=== PATIENT | male | born 1955 | race Caucasian/White ===

== ENCOUNTER 2017-07-10 00:31 | Observation (INO) | payer MEDICARE, MEDICAID ==
[~2017-07-10] VITALS: Ht 182.9 cm; Wt 110.0 kg
[2017-07-10] VITALS (9 sets, daily range): BP systolic 108–159; BP diastolic 52–88; PULSE 82–109; RESP 19–28; TEMP 97.3–98.6; O2SAT 93–98
[~2017-07-10 00:31] MED LIST: ALBU0.086 INH; ALBU17I INH; AZIT250T43 PO; CYMB60CA PO; FURO20TA PO; IPRA0.02 INH; LISI-363 PO; LORA0.5T PO; MSIR15 PO; PRED20 PO; SPIRCAP INH
[2017-07-10] MEDS ORDERED: methylPREDNISolone SOD SUCC 125 MG/2 ML VIAL IV PUSH ONE (00:45)
[2017-07-10] MEDS: RESP: ALBUTEROL 2.5 MG/IPRATROPIUM 0.5 MG NEB (SCH) INH ×2 (00:45→00:46)
[2017-07-10] MEDS ORDERED: SODIUM CHLORIDE 0.9% FLUSH 10 ML FLUSH IVF PRN (00:45)
[2017-07-10] MEDS ORDERED: FUROSEMIDE 100 MG/10 ML VIAL IV PUSH ONE (00:45)
[2017-07-10 00:59] LABS: AUTOMATED NEUTROPHIL # 7.7 TH/MM3 (1.8-7.7); BASOPHIL # 0.1 TH/MM3 (0-0.2); BASOPHIL % 0.9 % (0.0-2.0); EOSINOPHIL # 0.2 TH/MM3 (0-0.4); EOSINOPHIL % 1.4 % (0.0-4.0); HEMATOCRIT 32.4 % (39.0-51.0); HEMOGLOBIN 10.7 GM/DL (13.0-17.0); LYMPH % 21.8 % (9.0-44.0); LYMPHOCYTE # 2.5 TH/MM3 (1.0-4.8); MEAN CELL VOLUME 90.9 FL (80.0-100.0); MEAN CORPUSCULAR HEMOGLOBIN 29.9 PG (27.0-34.0); MEAN CORPUSCULAR HGB CONC 32.9 % (32.0-36.0); MEAN PLATELET VOLUME 8.1 FL (7.0-11.0); MONO % 8.4 % (0.0-8.0); NEUT % 67.5 % (16.0-70.0); PLATELET COUNT 358 TH/MM3 (150-450); RED BLOOD COUNT 3.56 MIL/MM3 (4.50-5.90); WHITE BLOOD COUNT 11.4 TH/MM3 (4.0-11.0)
[2017-07-10 01:13] LABS: PROTHROMBIN TIME - PATIENT 10.5 SEC (9.8-11.6)
[2017-07-10 01:17] LABS: ALBUMIN 3.3 GM/DL (3.4-5.0); AST (GOT) 12 U/L (15-37); BICARBONATE 34.2 MEQ/L (21.0-32.0); BLOOD UREA NITROGEN 14 MG/DL (7-18); CALCIUM 8.5 MG/DL (8.5-10.1); CHLORIDE 96 MEQ/L (98-107); CREATININE 1.15 MG/DL (0.60-1.30); GLOMERULAR FILTRATION RATE 65 ML/MIN (>89); GLUCOSE,RANDOM 151 MG/DL (74-106); SODIUM (NA) 137 MEQ/L (136-145)
[2017-07-10 01:22] LABS: ALKALINE PHOSPHATASE 111 U/L (45-117); ALT (GPT) 29 U/L (12-78); TOTAL BILIRUBIN ADULT 0.3 MG/DL (0.2-1.0); TOTAL PROTEIN 6.9 GM/DL (6.4-8.2); TROPONIN I LESS THAN 0.02 NG/ML (0.02-0.05)
--- NOTE | 2017-07-10 01:23 | PD ---
HPI Chief Complaint: Respiratory Symptoms Time Seen by Provider: 00:39 Travel History International Travel<30 days: No Contact w/Intl Traveler<30days: No Traveled to known affect area: No History of Present Illness HPI This is a 62-year-old male who has a history of COPD and congestive heart failure who presents to the emergency department with increasing shortness of breath, constant, severe, worse with exertion associated with burning in his chest. It's worse with laying flat. He denies any fevers or chills. He's been struggling with this for the past month and evidently has been seen at [facility] several times. He is on chronic prednisone and takes 80 mg Lasix but he says that's not helping. PFSH Past Medical History Anxiety: Yes Congestive Heart Failure: Yes COPD: Yes Diminished Hearing: No Hypertension: Yes Past Surgical History Other Surgery: Yes (spinal stimulator placement) Social History Alcohol Use: No Tobacco Use: Yes (1 ppd) Substance Use: No Allergies-Medications (Allergen,Severity, Reaction): Coded Allergies: *MDRO Multi-Drug Resistant Organism (Unverified Allergy, Unknown, 04/24/14) MRSA 2013 Reported Meds & Prescriptions Reported Meds & Active Scripts Active Reported Xanax (Alprazolam) 0.25 Mg Tab 0.25 Mg PO Q12HR PRN Proair Respiclick Inh (Albuterol Sulfate) 90 Mcg/Act Aerp 2 Puff INH Q6H PRN Hydrocodone-Acetamin 10-325 mg (Hydrocodone/Acetaminophen) 10 Mg-325 Mg Tablet Naproxen 500 Mg Tab 500 Mg PO BID Morphine Sulfate 30 Mg/30 Ml (1 Mg/Ml) Programming Coordinator.syring QID Aldactone (Spironolactone) 25 Mg Tab 25 Mg PO DAILY Bumetanide 2 Mg Tab 2 Mg PO DAILY Lasix (Furosemide) 80 Mg Tab 80 Mg PO BID Lisinopril 20 Mg Tab 20 Mg PO DAILY Review of Systems Except as stated in HPI: all other systems reviewed are Neg Physical Exam Narrative GENERAL: Morbidly obese SKIN: Focused skin assessment warm and dry. HEAD: Atraumatic. Normocephalic. EYES: Pupils equal and round. No injection or drainage. ENT: Moist mucous membranes NECK: Trachea midline. CARDIOVASCULAR: Regular rate and rhythm. No murmur appreciated. 2+ bilateral pitting edema in the lower extremities right greater than left RESPIRATORY: Diffuse wheezing, diminished breath sounds bilaterally, accessory muscle use and prolonged expiratory phase. GASTROINTESTINAL: Abdomen soft, non-tender, nondistended. MUSCULOSKELETAL: No obvious deformities. NEUROLOGICAL: Awake and alert. No obvious cranial nerve deficits. Moving all extremities. PSYCHIATRIC: Appropriate mood and affect; insight and judgment normal. Data Data Last Documented VS Vital Signs Date Time Temp Pulse Resp B/P (MAP) Pulse Ox O2 Delivery O2 Flow Rate FiO2 07/10/17 03:17 98.4 95 20 112/52 (72) 96 Nasal Cannula 3.00 Orders Orders Complete Blood Count With Diff (07/10/17 00:39) Comprehensive Metabolic Panel (07/10/17 00:39) B-Type Natriuretic Peptide (07/10/17 00:39) Act Partial Throm Time (Ptt) (07/10/17 00:39) Prothrombin Time / Inr (Pt) (07/10/17 00:39) Troponin I (07/10/17 00:39) Iv Access Insert/Monitor (07/10/17 00:39) Electrocardiogram (07/10/17 00:39) Ecg Monitoring (07/10/17 00:39) Oximetry (07/10/17 00:39) Oxygen Administration (07/10/17 00:39) Chest, Single Ap (07/10/17 00:39) Sodium Chloride 0.9% Flush (Ns Flush) (07/10/17 00:45) Methylprednisolone So Succ Inj (Solumedr (07/10/17 00:45) Albuterol-Ipratropium Neb (Duoneb Neb) (07/10/17 00:45) Furosemide Inj (Lasix Inj) (07/10/17 00:45) D-Dimer (07/10/17 01:21) Ct Pulmonary Angiogram (07/10/17 ) Iohexol 350 Inj (Omnipaque 350 Inj) (07/10/17 02:22) Levofloxacin 750 Mg Premix Inj (Levaquin (07/10/17 03:30) Morphine Inj (Morphine Inj) (07/10/17 03:45) Admit Order (Ed Use Only) (07/10/17 04:03) Labs Laboratory Tests Test 07/10/17 00:43 White Blood Count 11.4 TH/MM3 Red Blood Count 3.56 MIL/MM3 Hemoglobin 10.7 GM/DL Hematocrit 32.4 % Mean Corpuscular Volume 90.9 FL Mean Corpuscular Hemoglobin 29.9 PG Mean Corpuscular Hemoglobin Concent 32.9 % Red Cell Distribution Width 18.0 % Platelet Count 358 TH/MM3 Mean Platelet Volume 8.1 FL Neutrophils (%) (Auto) 67.5 % Lymphocytes (%) (Auto) 21.8 % Monocytes (%) (Auto) 8.4 % Eosinophils (%) (Auto) 1.4 % Basophils (%) (Auto) 0.9 % Neutrophils # (Auto) 7.7 TH/MM3 Lymphocytes # (Auto) 2.5 TH/MM3 Monocytes # (Auto) 1.0 TH/MM3 Eosinophils # (Auto) 0.2 TH/MM3 Basophils # (Auto) 0.1 TH/MM3 CBC Comment DIFF FINAL Differential Comment Prothrombin Time 10.5 SEC Prothromb Time International Ratio 1.0 RATIO Activated Partial Thromboplast Time 24.5 SEC D-Dimer Quantitative (PE/DVT) 0.70 MG/L FEU Blood Urea Nitrogen 14 MG/DL Creatinine 1.15 MG/DL Random Glucose 151 MG/DL Total Protein 6.9 GM/DL Albumin 3.3 GM/DL Calcium Level 8.5 MG/DL Alkaline Phosphatase 111 U/L Aspartate Amino Transf (AST/SGOT) 12 U/L Alanine Aminotransferase (ALT/SGPT) 29 U/L Total Bilirubin 0.3 MG/DL Sodium Level 137 MEQ/L Potassium Level 3.6 MEQ/L Chloride Level 96 MEQ/L Carbon Dioxide Level 34.2 MEQ/L Anion Gap 7 MEQ/L Estimat Glomerular Filtration Rate 65 ML/MIN Troponin I LESS THAN 0.02 NG/ML B-Type Natriuretic Peptide 124 PG/ML [facility] Medical Decision Making Medical Screen Exam Complete: Yes Emergency Medical Condition: Yes Interpretation(s) afebrile, mild tachycardia, normotensive mild leukocytosis electrolytes within normal limits bnp 124 Last 24 hours Impressions Chest X-Ray 07/10/17 0039 Signed Impressions: Service Date/Time: Monday, July 10, 2017 01:03 - CONCLUSION: No acute cardiopulmonary disease. Graciela Shipman MD CT Angiography 07/10/17 0000 Signed Impressions: Service Date/Time: Monday, July 10, 2017 02:14 - CONCLUSION: Right middle lobe infiltrate and/or scar, repeat noncontrast chest CT is suggested in 6 months as a conservative follow up. Graciela Shipman MD Differential Diagnosis pneumonia, congestive heart failure, copd exacerbation, pulmonary embolism Narrative Course This is a 62-year-old male who presents to the emergency department with difficulty breathing. He was placed on a monitor and an IV was established. He Was tachypneic on arrival with accessory muscle use and increased work of breathing. He improved with bronchodilators and steroids. Labs are obtained which are reassuring. CT of the chest demonstrates a possible pneumonia. Patient was given a dose of Levaquin. With slight movement the patient becomes very dyspneic. I think he merits observation for serial bronchodilator treatments. He also appears quite volume overloaded on exam. He was given a dose of IV Lasix. Physician Communication Physician Communication Discussed with Dr. Marvin Diagnosis Primary Impression: COPD exacerbation Admitting Information Admitting Physician Requests: Observation Hollie Shelley MD Jul 10, 2017 01:23
--- NOTE | 2017-07-10 01:33 | RADRPT ---
EXAM DATE/TIME: 07/10/2017 01:03 [facility] COMPARISON: CHEST PA & LAT, April 24, 2014, 12:19. INDICATIONS : Short of breath since this morning. MEDICAL HISTORY : Hypertension. Congestive heart failure. Chronic obstructive pulmonary disease . SURGICAL HISTORY : None. Spinal stimulator. ENCOUNTER: Initial ACUITY: 1 day PAIN SCORE: 0/10 LOCATION: Bilateral chest FINDINGS: The lungs are clear without infiltrate, nodule, or mass except for slight linear scarring right midlu ng. There is no appreciable pleural effusion for technique. Heart and mediastinum are unremarkable. CONCLUSION: No acute cardiopulmonary disease. Graciela Shipman MD on July 10, 2017 at 1:31 Board Certified Radiologist. This report was verified electronically.
[2017-07-10] MEDS ORDERED: IOHEXOL 350 MG/ML 10 ML VIAL (for RAD DIAG) IVCONTRAST ONE (02:22)
--- NOTE | 2017-07-10 03:11 | RADRPT ---
EXAM DATE/TIME: 07/10/2017 02:14 [facility] COMPARISON: CHEST SINGLE AP, July 10, 2017, 1:03. INDICATIONS : Shortness of breath. IV CONTRAST: 80 cc Omnipaque 350 (iohexol) IV RADIATION DOSE: 27.28 CTDIvol (mGy) MEDICAL HISTORY : Congestive heart failure. Chronic obstructive pulmonary disease. Hypertension. SURGICAL HISTORY : Spinal stimulator. ENCOUNTER: Initial ACUITY: 1 day PAIN SCALE: 0/10 LOCATION: chest TECHNIQUE: Volumetric scanning of the chest was performed using a pulmonary embolism protocol MIP images were re constructed. Using automated exposure control and adjustment of the mA and/or kV according to patien t size, radiation dose was kept as low as reasonably achievable to obtain optimal diagnostic quality images. DICOM format image data is available electronically for review and comparison. Follow-up recommendations for detected pulmonary nodules are based at a minimum on nodule size and pa tient risk factors according to Fleischner Society Guidelines. FINDINGS: There is no evidence for PE for technique. There are parenchymal changes in the right middle lobe may represent scar and/or focal infiltrate with COPD changes scattered throughout.. There is no pleural effusion. No appreciable pathological adenopathy is seen within the mediastinum. The liver is fatty without focal lesions or technique. CONCLUSION: Right middle lobe infiltrate and/or scar, repeat noncontrast chest CT is suggested in 6 months as a conservative follow up. Graciela Shipman MD on July 10, 2017 at 3:06 Board Certified Radiologist. This report was verified electronically.
[2017-07-10] MEDS ORDERED: SPIR25 PO (03:26)
[2017-07-10] MEDS ORDERED: BUME2TAB PO (03:26)
[2017-07-10] MEDS ORDERED: LISI-515 PO (03:26)
[2017-07-10] MEDS ORDERED: FURO1TAB61 PO (03:26)
[2017-07-10] MEDS ORDERED: NAPR500T2 PO (03:26)
[2017-07-10] MEDS ORDERED: HYDR-3583 (03:26)
[2017-07-10] MEDS ORDERED: MORP1INJ25 (03:26)
[2017-07-10] MEDS ORDERED: ALBU1AER5 INH (03:26)
[2017-07-10] MEDS ORDERED: ALPR.25 PO (03:26)
[2017-07-10] MEDS ORDERED: LEVOFLOXACIN 750 MG PREMIX INJ 150 ML IV ONE (03:30)
[2017-07-10] MEDS ORDERED: MORPHINE SULFATE 2 MG/ML INJ IV PUSH ONE (03:45)
[2017-07-10] MEDS ORDERED: SODIUM CHLORIDE 0.9% FLUSH 10 ML FLUSH IV FLUSH PRN (04:15)
[2017-07-10] MEDS ORDERED: ALPRAZolam 0.25 MG TAB PO PRN (04:15)
[2017-07-10] MEDS ORDERED: RESP: ALBUTEROL 2.5 MG/IPRATROPIUM 0.5 MG NEB (PRN) INH (04:15)
[2017-07-10] MEDS ORDERED: ONDANSETRON HCL 4 MG/2 ML VIAL IV PUSH PRN (04:15)
[2017-07-10] MEDS ORDERED: ACETAMINOPHEN 325 MG TAB PO PRN (04:15)
[2017-07-10] MEDS ORDERED: ENOXAPARIN SODIUM 40 MG/0.4 ML SYRINGE SQ SCH (04:15)
[2017-07-10] MEDS ORDERED: DEXTROSE 50% IN WATER 50 ML VIAL(D50) IV PUSH PRN (05:00)
[2017-07-10] MEDS ORDERED: GLUCAGON 1 MG/ML VIAL OTHER PRN (05:00)
[2017-07-10] MEDS ORDERED: oxyCODONE/ACETAMINOPHEN 10 MG/325 MG TAB PO PRN (05:00)
--- NOTE | 2017-07-10 05:00 | HHI.HP ---
[facility] Non-Staff Admission Diagnosis copd exacerbation Diagnoses: Travel History International Travel<30 Days: No Contact w/Intl Traveler <30 Da: No Traveled to Known Affected Are: No History of Present Illness 62-year-old male with a past medical history significant for COPD on 2 L nasal cannula, CHF (no recent echo performed at this institution), chronic back pain and hypertension presents to the emergency department with the chief complaint of shortness of breath. The patient reports he has been in [facility] 18 times since the beginning of the year for similar symptoms. His film maker is Dr. Gamble. The patient was last discharged approximately one week ago. He states that since that time he has had increased bilateral lower extremity edema and states he is carrying "50 extra pounds of fluid." He reports compliance with his diuretics. He has had a nonproductive cough for approximately 1 week. He states he was requiring 4 L by nasal cannula at home and was still feeling short of breath, worse with exertion. CTA significant for a right middle lobe infiltrate versus scar. Review of Systems Denies fever or chills Denies blurry vision, otorrhea, rhinorrhea Denies sore throat, positive nonproductive cough No chest pain, palpitations, positive shortness of breath No abdominal pain Denies constipation/diarrhea/nausea/vomiting Denies muscle pain/weakness No rashes Past Family Social History Past Medical History CHF COPD Chronic back pain Hypertension Past Surgical History Pain stimulator Back surgery Reported Medications Reported Meds & Active Scripts Active Reported Xanax (Alprazolam) 0.25 Mg Tab 0.25 Mg PO Q12HR PRN Proair Respiclick Inh (Albuterol Sulfate) 90 Mcg/Act Aerp 2 Puff INH Q6H PRN Hydrocodone-Acetamin 10-325 mg (Hydrocodone/Acetaminophen) 10 Mg-325 Mg Tablet Naproxen 500 Mg Tab 500 Mg PO BID Morphine Sulfate 30 Mg/30 Ml (1 Mg/Ml) Speck Dyer.syring QID Aldactone (Spironolactone) 25 Mg Tab 25 Mg PO DAILY Bumetanide 2 Mg Tab 2 Mg PO DAILY Lasix (Furosemide) 80 Mg Tab 80 Mg PO BID Lisinopril 20 Mg Tab 20 Mg PO DAILY Allergies: Coded Allergies: *MDRO Multi-Drug Resistant Organism (Unverified Allergy, Unknown, 04/24/14) MRSA 2013 Family History Mother with heart disease. Social History Smokes approximately one pack per day 6 months. Has a 3 pack a day history 40 years. Rare alcohol. Positive marijuana. Denies other drugs. Physical Exam Vital Signs Vital Signs Date Time Temp Pulse Resp B/P (MAP) Pulse Ox O2 Delivery O2 Flow Rate FiO2 07/10/17 04:34 07/10/17 03:17 98.4 95 20 112/52 (72) 96 Nasal Cannula 3.00 07/10/17 02:30 95 20 126/76 (93) 97 Nasal Cannula 3.00 07/10/17 00:48 97 Nasal Cannula 3.00 07/10/17 00:43 96 Nasal Cannula 3.00 07/10/17 00:43 96 Nasal Cannula 3.00 07/10/17 00:33 109 28 159/88 (111) 96 Physical Exam GENERAL: Obese, male sitting up in bed SKIN: No rashes, ecchymoses or lesions. Cool and dry. HEAD: Atraumatic. Normocephalic. No temporal or scalp tenderness. EYES: Pupils equal round and reactive. Extraocular motions intact. No scleral icterus. No injection or drainage. ENT: Nose without bleeding, purulent drainage or septal hematoma. Throat without erythema, tonsillar hypertrophy or exudate. Uvula midline. Airway patent. NECK: Trachea midline. No JVD or lymphadenopathy. Supple, nontender, no meningeal signs. CARDIOVASCULAR: Regular rate and rhythm without murmurs, gallops, or rubs. RESPIRATORY: Poor air movement. No wheezes, rales, or rhonchi. GASTROINTESTINAL: Abdomen soft, non-tender, nondistended. No hepato-splenomegaly , or palpable masses. No guarding. MUSCULOSKELETAL: 2+ bilateral lower extremity edema. No calf tenderness. NEUROLOGICAL: Awake and alert. Cranial nerves II through XII intact. Motor and sensory grossly within normal limits. Normal speech. Laboratory Laboratory Tests Test 07/10/17 00:43 White Blood Count 11.4 Red Blood Count 3.56 Hemoglobin 10.7 Hematocrit 32.4 Mean Corpuscular Volume 90.9 Mean Corpuscular Hemoglobin 29.9 Mean Corpuscular Hemoglobin Concent 32.9 Red Cell Distribution Width 18.0 Platelet Count 358 Mean Platelet Volume 8.1 Neutrophils (%) (Auto) 67.5 Lymphocytes (%) (Auto) 21.8 Monocytes (%) (Auto) 8.4 Eosinophils (%) (Auto) 1.4 Basophils (%) (Auto) 0.9 Neutrophils # (Auto) 7.7 Lymphocytes # (Auto) 2.5 Monocytes # (Auto) 1.0 Eosinophils # (Auto) 0.2 Basophils # (Auto) 0.1 CBC Comment DIFF FINAL Differential Comment Prothrombin Time 10.5 Prothromb Time International Ratio 1.0 Activated Partial Thromboplast Time 24.5 D-Dimer Quantitative (PE/DVT) 0.70 Blood Urea Nitrogen 14 Creatinine 1.15 Random Glucose 151 Total Protein 6.9 Albumin 3.3 Calcium Level 8.5 Alkaline Phosphatase 111 Aspartate Amino Transf (AST/SGOT) 12 Alanine Aminotransferase (ALT/SGPT) 29 Total Bilirubin 0.3 Sodium Level 137 Potassium Level 3.6 Chloride Level 96 Carbon Dioxide Level 34.2 Anion Gap 7 Estimat Glomerular Filtration Rate 65 Troponin I LESS THAN 0.02 B-Type Natriuretic Peptide 124 Result Diagram: 07/10/173 07/10/17 004 Caprini VTE Risk Assessment Caprini VTE Risk Assessment: Mod/High Risk (score >= 2) Caprini Risk Assessment Model Point Value = 1 Point Value = 2 Point Value = 3 Point Value = 5 Age 41-60 Minor surgery BMI > 25 kg/m2 Swollen legs Varicose veins or History of unexplained or recurrent spontaneous Oral contraceptives or hormone replacement Sepsis (< 1 month) Serious lung disease, including pneumonia (< 1 month) Abnormal pulmonary function Acute myocardial infarction Congestive heart failure (< 1 month) History of inflammatory bowel disease Medical patient at bed rest Age 61-74 Arthroscopic surgery Major open surgery (> 45 min) Laparoscopic surgery (> 45 min) Malignancy Confined to bed (> 72 hours) Immobilizing plaster cast Central venous access Age >= 75 History of VTE Family history of VTE Factor V Leiden Prothrombin [id number] Lupus anticoagulant Anticardiolipin antibodies Elevated serum homocysteine Heparin-induced thrombocytopenia Other congenital or acquired thrombophilia Stroke (< 1 month) Elective arthroplasty Hip, pelvis, or leg fracture Acute spinal cord injury (< 1 month) Prophylaxis Regimen Total Risk Factor Score Risk Level Prophylaxis Regimen 0-1 Low Early ambulation 2 Moderate Order ONE of the following: *Sequential Compression Device (SCD) *Heparin 5000 units SQ BID 3-4 Higher Order ONE of the following medications: *Heparin 5000 units SQ TID *Enoxaparin/Lovenox 40 mg SQ daily (WT < 150 kg, CrCl > 30 mL/min) *Enoxaparin/Lovenox 30 mg SQ daily (WT < 150 kg, CrCl > 10-29 mL/min) *Enoxaparin/Lovenox 30 mg SQ BID (WT < 150 kg, CrCl > 30 mL/min) AND/OR *Sequential Compression Device (SCD) 5 or more Highest Order ONE of the following medications: *Heparin 5000 units SQ TID (Preferred with Epidurals) *Enoxaparin/Lovenox 40 mg SQ daily (WT < 150 kg, CrCl > 30 mL/min) *Enoxaparin/Lovenox 30 mg SQ daily (WT < 150 kg, CrCl > 10-29 mL/min) *Enoxaparin/Lovenox 30 mg SQ BID (WT < 150 kg, CrCl > 30 mL/min) AND *Sequential Compression Device (SCD) Assessment and Plan Assessment and Plan Assessment/plan: 1. COPD exacerbation CTA with consolidation versus scarring in the right middle lobe Levaquin IV steroids with SSI Duo nebs Supplemental oxygen prn 2. CHF Continue home Lasix 80 mg by mouth twice a day and home Bumex 2 mg by mouth daily Chest x-ray negative for pulmonary edema, images reviewed by me BMP 124 3. Hypertension Continue home medications 4. Chronic back pain Patient reports he is on extended release morphine however does not see a cork painter and grader Percocet FEN Heart healthy diet Electrolytes: monitor and replete prn Lovenox She Marvin MD Jul 10, 2017 05:00
[2017-07-10] MEDS: methylPREDNISolone SOD SUCC 40 MG/1 ML VIAL IV PUSH SCH ×2 (05:18→12:49)
[2017-07-10] MEDS: INSULIN ASPART SUPPLEMENTAL SCALE SQ SCH ×2 (08:25→13:17)
--- NOTE | 2017-07-10 08:50 | EKG ---
Date Performed: 07/10/2017 Time Performed: 00:40:05 PTAGE: 62 years EKG: Sinus rhythm NORMAL ECG NO PREVIOUS TRACING DOCTOR: Aaron Alfaro Interpretating Date/Time 07/10/2017 08:48:50
[2017-07-10] MEDS ORDERED: BUMETANIDE 1 MG TAB PO SCH ×2 (09:00→12:00)
[2017-07-10] MEDS ORDERED: LISINOPRIL 20 MG TAB PO SCH (09:00)
[2017-07-10] MEDS ORDERED: SPIRONOLACTONE 25 MG TAB PO SCH (09:00)
[2017-07-10] MEDS ORDERED: FUROSEMIDE 80 MG TAB PO SCH (09:00)
[2017-07-10] MEDS ORDERED: SODIUM CHLORIDE 0.9% FLUSH 10 ML FLUSH IV FLUSH SCH (09:00)
[2017-07-10] MEDS ORDERED: methylPREDNISolone SOD SUCC 40 MG/1 ML VIAL IV PUSH SCH (09:00)
[2017-07-10] MEDS ORDERED: RESP: ALBUTEROL 2.5 MG/IPRATROPIUM 0.5 MG NEB (SCH) INH (10:00)
--- NOTE | 2017-07-10 11:35 | HHI.PR ---
Addendum to Inpatient Note Addendum Reason: Additional Documentation Additional Information Patient seen and examined. He is a complex case with severe COPD, CHF and has been having issues for months with fluid overload. His breathing is close to baseline. All of his Doctors are at [facility] including Motorbike Courier, Control Engineer, and Metal Trim Erector. He said he is not sure why he came here. He wants to go back to [facility] where they have all his records. He is currently stable, the only added treatment since his arrival is IV steroid and Levaquin for possible COPD exacerbation. I agree with him that his best course is to follow up with his physicians. His is on the way to pick him up and will bring him to [facility]. Patient can be discharged. Caryl Park MD Jul 10, 2017 11:35
[2017-07-11] MEDS ORDERED: LEVOFLOXACIN 750 MG PREMIX INJ 150 ML IV SCH (04:00)
== END 2017-07-10 15:04 | disposition home or self-care (01) ==
LOC: NEPC 00:31 → NEDA 04:05 → NEPFCDU 04:31
PROVIDERS: ADMIT Family Medicine; ATTEND Family Medicine
DX: J44.1 Chronic obstructive pulmonary disease with (acute) exacerbation (principal); I11.0 Hypertensive heart disease with heart failure; I50.9 Heart failure, unspecified; M54.9 Dorsalgia, unspecified; G89.29 Other chronic pain; F17.210 Nicotine dependence, cigarettes, uncomplicated; Z79.52 Long term (current) use of systemic steroids
CPT/HCPCS: 71010; 71275; 80053; 82948; 83880; 84484; 85025; 85379; 85610; 85730; 93005; 94640; 94664; 96365; 96372; 96375; 96376; 99285; G0378; J1650; J1815; J1940; J1956; J2270; J2920; J2930; Q9967